=== PATIENT | female | born 1970 | race Caucasian/White ===

== ENCOUNTER → 2017-11-19 09:05 | Outpatient (POV) | payer BC, SELFPAY | PROVIDERS: Visit Provider Nurse Practitioner Acute Care | DX: Z00.00 Encounter for general adult medical examination without abnormal findings (principal) ==

== ENCOUNTER 2018-08-10 12:30 | Observation (INO) ==
--- NOTE | 2018-08-10 12:50 | Emergency Department Note ---
ED Disposition Clinical Impression: Esophageal dysphagia, Schatzki's ring of distal esophagus, Esophagitis, Hypernatremia, Dehydration Disposition: Still a Patient Condition on Discharge: Fair Referrals: Lucia Cisneros MD [Primary Care Provider] - - Critical Care Critical Care Time: No Attestation: On , the high probability of a clinically significant, sudden or life threatening deterioration of the following system(s) required my full and direct attention, intervention and personal management. The time I documented below is in addition to time spent performing reported procedures but includes the following listed in this critical care notation. Medical Decision Making - Medical Records Medical records reviewed: Yes: I reviewed the patient's medical records. - [place] Inquiry Pt receiving controlled substance: No [place] was queried for this patient: No Vital Signs: 08/10/18 12:39 08/10/18 14:31 Temperature 98.1 F Temperature Source Oral Pulse Rate [Right Brachial] 66 68 Respiratory Rate 17 18 Blood Pressure [Right Arm] 149/79 H 114/75 Blood Pressure Mean [Right Arm] 102 88 Blood Pressure Source [Right Arm] Automatic Cuff Automatic Cuff Blood Pressure Position [Right Arm] Sitting Sitting 02 Sat by Pulse Oximetry 97 98 Oxygen Delivery Method Room Air Room Air - Lab Data Lab Results 08/10/18 13:25: WBC 9.9, RBC 5.20, Hgb 15.8, Hct 47.3 H, MCV 90.9, MCH 30.3, MCHC 33.4, RDW 13.5, Plt Count 279, MPV 8.5, Neut % (Auto) 83.8 H, Lymph % (Auto) 11.2, [place] % (Auto) 4.3, Eos % (Auto) 0.2, Baso % (Auto) 0.5, Neut # (Auto) 8.3 H, Lymph # (Auto) 1.1, [place] # (Auto) 0.4, Eos # (Auto) 0.0, Baso # (Auto) 0.1 08/10/18 13:25: Sodium 148 H, Potassium 3.8, Chloride 110 H, Carbon Dioxide 28, Anion Gap 13.8, BUN 17, Creatinine 0.95, Estimated Creat Clear 83, Estimated GFR 63, Est GFR ( Amer) 76, Glucose 115 H, Calcium 9.6 Result diagrams: 08/10/18 13:25 08/10/18 13:25 Orders (Tests/Meds): ED MEDICATIONS Generic Name Dose Route Start Last Admin Trade Name [place] PRN Reason Stop Dose Admin Metoclopramide HCl 5 mg 08/10/18 16:30 08/10/18 14:43 Reglan 10mg/2ml Vial IVP 09/09/18 16:29 5 mg ACHS CLEMENTINA Administration ORDERS Category Date Time Status Consult to General Surgery [CONS] Stat Cons 08/10/18 15:56 Ordered Neck soft tissue XR [XR soft tissue neck] Stat Exams 08/10/18 12:46 Taken XR chest 2V Stat Exams 08/10/18 12:46 Taken - Radiology Data #1 Image(s): Chest Image Reviewed: Yes I reviewed the patient's radiology image Preliminary Findings: Normal/NAD Neck soft tissue x-ray no acute findings.. Medical Decision Narrative: The patient remained stable blood work and chest x-ray were within normal limits. I spoke with Dr. Garcia who advised the patient be admitted to a primary care physician who will see her in consultation. I discussed with Dr. Cisneros recommended the patient received Reglan. Patient received Reglan IV with no improvement. Patient will be admitted with a consultation to Dr. Garcia. General Adult HPI - General Stated complaint: vomiting Time Seen by Provider: 08/10/18 12:45 Mode of Arrival: Ambulatory Limitations: No Limitations Description of Symptoms (Recalled from ER Triage Doc. by RN): food bolus (steak) stuck in esophagus since approx 0200 this am. pt has tried taking antacids as well as drinking fluids to "push it down" without success. noticed that she is unable to pass any fluids with immediate gi rejection - History of Present Illness HPI narrative: 47 years old white female who was sent from the primary care office due to ongoing dysphagia since yesterday at 2 AM. The patient works the shift engineer and she was eating a piece of steak at 2 AM, she felt was stuck at the lower part of her sternum, she vomited the piece of steak but she continued to be unable to eat, drink or swallow her own saliva since then. She denies having shortness of air, wheezing, abdominal pain, hematemesis, coffee-ground emesis, or bleeding per rectum. The patient underwent upper endoscopy by Dr. Velasquez on January 24, 2017 that was positive for she will obscuring and nonerosive esophagitis. Was recommended to use Metamucil but she refuses to take medications. Onset (ago): hour(s) (11 hours.) Associated symptoms: nausea/vomiting Treatments prior to arrival: none - Related Data Home Medications Medication Instructions Recorded Confirmed No Known Home Medications 09/19/17 12/20/17 Allergies Allergy/AdvReac Type Severity Reaction Status Date / Time No Known Allergies Allergy Verified 12/20/17 10:07 [facility] History - Hepatitis A Screen Drug use history?: No High risk sexual behaviors?: No History of sexually transmitted infection?: No Currently employed?: No Childcare worker?: No Do you have indoor plumbing?: Yes Do you have electricity?: Yes Attestation statement:: This patient has been screened for Hepatitis A risk factors. I have reviewed the patient's past medical history: Yes Medical History: Denies:: Diabetes Mellitus Type 1, Diabetes Mellitus Type 2, Internal Pacemaker, Lung Disease, Seizures Other Surgeries: Yes: Tubal Ligation, Other. No: Pacemaker - Social History Educational Level: Completed High School Smoking Status: Never smoker Alcohol Intake: never Alcohol Intake Frequency:: other Substance Use Type: denies use Occupational Status: employed - Psychiatric History Expresses thoughts of harming self/others: None Suicide Plan Description: No Plan Family Hx:: Unable to obtain ROS Obtained: Yes All systems reviewed & no additional complaints Physical Exam - General General appearance: alert, in no apparent distress - Head Head exam: atraumatic, normocephalic, normal inspection - Eye Eye exam: Present: normal appearance, PERRL, EOMI. Absent: scleral icterus, nystagmus - ENT ENT exam: Present: normal exam, normal oropharynx, mucous membranes moist, TM's normal bilaterally, normal external ear exam - Neck Neck exam: Present: normal inspection, full ROM, trachea midline. Absent: tenderness, meningismus, lymphadenopathy - Chest Chest inspection: Present: normal inspection, symmetric chest wall rise. Absent: tenderness - Respiratory Respiratory exam: Present: normal lung sounds bilaterally. Absent: respiratory distress, wheezes - Cardiovascular Cardiovascular exam: Present: regular rate, normal rhythm, normal heart sounds. Absent: JVD - Abdominal Exam Abdominal exam: Present: soft, normal bowel sounds. Absent: distention, tenderness, guarding, rebound, rigidity - Extremities Exam Extremities exam: Present: normal inspection, full ROM, normal capillary refill. Absent: tenderness, pedal edema, joint swelling, calf tenderness - Back Exam Back exam: Present: normal inspection. Absent: tenderness, CVA tenderness (R), CVA tenderness (L) - Neurological Exam Neurological exam: Present: alert, oriented X3, CN II-XII intact, motor sensory deficit, reflexes normal - Psychiatric Psychiatric exam: Present: normal affect, normal mood - Skin Skin exam: Present: warm, dry, intact, normal color - Lymphatic Lymphatic Findings: no adenopathy
[2018-08-10 13:45] LABS: Basophils # 0.1 K/mm3 (0-0.2); Basophils % 0.5 % (0.1-2.0); Eosinophils % 0.2 % (0.1-12.0); Hematocrit 47.3 % (37.0-47.0); Hemoglobin 15.8 g/dL (12.2-16.2); Lymphocytes # 1.1 K/mm3 (0.7-4.5); Lymphocytes % 11.2 % (10-50); Mean Corpuscular HGB Conc 33.4 g/dL (31.8-35.4); Mean Corpuscular Hemoglobin 30.3 pg (27.0-31.2); Mean Corpuscular Volume 90.9 fl (81-99); Mean Platelet Volume 8.5 fl (7.4-10.4); Monocytes # 0.4 K/mm3 (0.1-1.0); Monocytes % 4.3 % (1.7-9.3); Neutrophils # 8.3 K/mm3 (1.8-7.8); Neutrophils % 83.8 % (37.0-80.0); Platelet Count 279 K/mm3 (142-424); Red Cell Distribution Width 13.5 % (11.5-17.5); White Blood Count 9.9 K/mm3 (4.8-10.8)
[2018-08-10 13:48] LABS: Anion Gap 13.8 mEq/L (5-15); Calcium 9.6 mg/dL (8.5-10.1); Potassium 3.8 mmoL/L (3.5-5.1)
--- NOTE | 2018-08-10 16:17 | Progress Note ---
Internal Medicine - PN: Subj *Date: 08/10/18 *Time: 16:12 Interval history: See H&P from [facility]. The patient was seen today in the office of [facility]. Hx of Schatzki's ring with dilatation by Dr. Velasquez December 2017. Now with apparent obstruction. Cannot swallow water without regurgitating. Was sent to ER for evaluation and treatment. Did not respond to IV Metoclopramide. Dr. Garcia has been contacted and plans endoscopy. Exam Vital signs and Labs for Last 24 Hours: Temp Pulse Resp BP Pulse Ox 98.1 F 68 18 114/75 98 08/10/18 12:39 08/10/18 14:31 08/10/18 14:31 08/10/18 14:31 08/10/18 14:31 Laboratory Results - last 24 hr 08/10/18 13:25: WBC 9.9, RBC 5.20, Hgb 15.8, Hct 47.3 H, MCV 90.9, MCH 30.3, MCHC 33.4, RDW 13.5, Plt Count 279, MPV 8.5, Neut % (Auto) 83.8 H, Lymph % (Auto) 11.2, [place] % (Auto) 4.3, Eos % (Auto) 0.2, Baso % (Auto) 0.5, Neut # (Auto) 8.3 H, Lymph # (Auto) 1.1, [place] # (Auto) 0.4, Eos # (Auto) 0.0, Baso # (Auto) 0.1 08/10/18 13:25: Sodium 148 H, Potassium 3.8, Chloride 110 H, Carbon Dioxide 28, Anion Gap 13.8, BUN 17, Creatinine 0.95, Estimated Creat Clear 83, Estimated GFR 63, Est GFR ( Amer) 76, Glucose 115 H, Calcium 9.6 I & O for Last 24 hours: Intake & Output 08/08/18 08/09/18 08/10/18 08/11/18 11:59 11:59 11:59 12:59 Weight 157 lb 8 oz Assessment and Plan (1) Dehydration Current visit: Yes Status: Acute Category: Medical Code(s): E86.0 - Dehydration (2) Esophageal dysphagia Current visit: Yes Status: Acute Category: Medical Code(s): R13.10 - Dysphagia, unspecified (3) Esophagitis Current visit: Yes Status: Acute Category: Medical Code(s): K20.9 - Esophagitis, unspecified (4) Hypernatremia Current visit: Yes Status: Acute Category: Medical Code(s): E87.0 - Hyperosmolality and hypernatremia (5) Schatzki's ring of distal esophagus Current visit: Yes Status: Acute Category: Medical Code(s): K22.2 - Esophageal obstruction - Assessment and plan all Dx Assessment and Plan for all problems:: See orders
--- NOTE | 2018-08-10 18:30 | History & Physical Report ---
HPI HPI: Ms. Sol is a 47-year-old female that presents with dysphasia. Reports eating "steak" at work at approximately 2 AM this morning. Food did not digest properly. Secondary onset of emesis. Increased secretions and saliva. Pain radiating to mid back. Previous EGD with dilation for Schatzki's ring. Findings consistent with food impaction distal esophagus. No other complaints. No hematemesis. No fever or chills. [facility] History I have reviewed the patient's past medical history: Yes Medical History: Denies:: Diabetes Mellitus Type 1, Diabetes Mellitus Type 2, Internal Pacemaker, Lung Disease, Seizures *Have you ever received a pneumonia vaccine?: No *Have you received a flu vaccine this season?: No Other Surgeries: Yes: Tubal Ligation, Other. No: Pacemaker - *Social History Educational Level: Completed High School Smoking Status: Never smoker Alcohol Intake: never Alcohol Intake Frequency:: other Substance Use Type: denies use *Occupational Status:: employed *Travel in the last 8 weeks: None - Psychiatric History Expresses thoughts of harming self/others: None Suicide Plan Description: No Plan Family Hx:: Unable to obtain Review of Systems - Review of Systems Review of systems:: pertinent systems reviewed and negative unless documented below - *Gastrointestinal Reports heartburn Meds Home Medications Medication Instructions Recorded Confirmed Type No Known Home Medications 09/19/17 08/10/18 History Allergies Allergy/AdvReac Type Severity Reaction Status Date / Time No Known Allergies Allergy Verified 12/20/17 10:07 Exam Vital signs and Labs for Last 24 Hours: Temp Pulse Resp BP Pulse Ox 98.0 F 74 12 93/48 L 100 08/10/18 18:15 08/10/18 18:15 08/10/18 18:15 08/10/18 18:15 08/10/18 18:15 Laboratory Results - last 24 hr 08/10/18 13:25: WBC 9.9, RBC 5.20, Hgb 15.8, Hct 47.3 H, MCV 90.9, MCH 30.3, MCHC 33.4, RDW 13.5, Plt Count 279, MPV 8.5, Neut % (Auto) 83.8 H, Lymph % (Auto) 11.2, [place] % (Auto) 4.3, Eos % (Auto) 0.2, Baso % (Auto) 0.5, Neut # (Auto) 8.3 H, Lymph # (Auto) 1.1, [place] # (Auto) 0.4, Eos # (Auto) 0.0, Baso # (Auto) 0.1 08/10/18 13:25: Sodium 148 H, Potassium 3.8, Chloride 110 H, Carbon Dioxide 28, Anion Gap 13.8, BUN 17, Creatinine 0.95, Estimated Creat Clear 83, Estimated GFR 63, Est GFR ( Amer) 76, Glucose 115 H, Calcium 9.6 I & O for Last 24 hours: Intake & Output 08/08/18 08/09/18 08/10/18 08/11/18 11:59 11:59 11:59 12:59 Weight 70.789 kg - Constitutional no acute distress - *Routine Respiratory Exam Present: CTA bilaterally - *Routine Cardiovascular Exam Present: RRR - *Routine Abdominal Exam Present: soft. Absent: tenderness, distended Results - Results Lab Results Last 24 Hours:: Laboratory Results - last 24 hr 08/10/18 13:25: WBC 9.9, RBC 5.20, Hgb 15.8, Hct 47.3 H, MCV 90.9, MCH 30.3, MCHC 33.4, RDW 13.5, Plt Count 279, MPV 8.5, Neut % (Auto) 83.8 H, Lymph % (Auto) 11.2, [place] % (Auto) 4.3, Eos % (Auto) 0.2, Baso % (Auto) 0.5, Neut # (Auto) 8.3 H, Lymph # (Auto) 1.1, [place] # (Auto) 0.4, Eos # (Auto) 0.0, Baso # (Auto) 0.1 08/10/18 13:25: Sodium 148 H, Potassium 3.8, Chloride 110 H, Carbon Dioxide 28, Anion Gap 13.8, BUN 17, Creatinine 0.95, Estimated Creat Clear 83, Estimated GFR 63, Est GFR ( Amer) 76, Glucose 115 H, Calcium 9.6 Assessment and Plan (1) Dehydration Current visit: Yes Status: Acute Category: Medical Code(s): E86.0 - Dehydration (2) Esophageal dysphagia Current visit: Yes Status: Acute Category: Medical Code(s): R13.10 - Dysphagia, unspecified (3) Esophagitis Current visit: Yes Status: Acute Category: Medical Code(s): K20.9 - Eso phagitis, unspecified (4) Hypernatremia Current visit: Yes Status: Acute Category: Medical Code(s): E87.0 - Hyperosmolality and hypernatremia (5) Schatzki's ring of distal esophagus Current visit: Yes Status: Acute Category: Medical Code(s): K22.2 - Esophageal obstruction - Assessment and plan all Dx Assessment and Plan for all problems:: Food impaction. Distal esophagus. Proceed with EGD and food impaction retrieval. All risks and benefits discussed with Ms. Sol. Agrees to proceed.
--- NOTE | 2018-08-10 18:34 | Operative Note ---
Date of procedure: 08/10/18 Pre-op Diagnosis:: Dysphasia. Distal esophagus food impaction. Post-op Diagnosis:: Same. Procedure performed:: EGD. Surgeon:: Irwin Garcia MD INTERACTIVE MEDIA PROJECT MANAGER:: Jordy Zapata Anesthesia: MAC Estimated blood loss (mL): 0 Operative findings:: Large food bolus distal esophagus. Pushed through to stomach. Schatzki ring visible. Operative note:: Patient was properly identified and consent was obtained. Patient was brought to the endoscopy suite. Placed in the left lateral decubitus position. Supplemental oxygen administered. Propofol sedation administered through indwelling intravenous access. Olympus video endoscope was advanced into the oropharynx. Passed without difficulty into the upper esophagus. No mucosal abnormalities in the mid to upper esophagus. Large food bolus was present in the distal esophagus. Clear fluid column was above the food bolus. This was evacuated. Food bolus then entered into the stomach without resistance. Food bolus did not require retrieval. Schatzki ring was visible. Gastric mucosa appeared healthy except for small gastric polyps. No other abnormalities. Patient tolerated the procedure well. Patient transferred to general medical floor after procedure without difficulty. Condition: stable Disposition: floor Complications:: None.
[2018-08-11 06:44] LABS: Basophils % 0.3 % (0.1-2.0); Eosinophils # 0.1 K/mm3 (0.0-0.4); Eosinophils % 1.2 % (0.1-12.0); Hematocrit 39.1 % (37.0-47.0); Lymphocytes # 1.8 K/mm3 (0.7-4.5); Lymphocytes % 24.3 % (10-50); Mean Corpuscular HGB Conc 32.7 g/dL (31.8-35.4); Mean Corpuscular Hemoglobin 29.7 pg (27.0-31.2); Mean Platelet Volume 8.8 fl (7.4-10.4); Monocytes # 0.5 K/mm3 (0.1-1.0); Monocytes % 6.2 % (1.7-9.3); Neutrophils # 4.9 K/mm3 (1.8-7.8); Platelet Count 214 K/mm3 (142-424); Red Blood Count 4.29 M/mm3 (4.20-5.40); Red Cell Distribution Width 13.6 % (11.5-17.5); White Blood Count 7.2 K/mm3 (4.8-10.8)
[2018-08-11 06:50] LABS: Hemoglobin 12.8 g/dL (12.2-16.2)
[2018-08-11 06:51] LABS: Anion Gap 12.4 mEq/L (5-15); Potassium 3.4 mmoL/L (3.5-5.1)
--- NOTE | 2018-08-11 09:13 | Progress Note ---
Internal Medicine - PN: Subj *Date: 08/11/18 *Time: 09:10 Interval history: The operative note is reviewed. The patient is stable this morning. She is taking clear liquids. I have not heard directly from Dr. Garcia, but I would presume that she would be eligible for discharge this morning. Exam Vital signs and Labs for Last 24 Hours: Temp Pulse Resp BP Pulse Ox 97.8 F 60 16 100/53 L 97 08/11/18 04:00 08/11/18 04:00 08/11/18 04:00 08/11/18 04:00 08/11/18 04:00 Laboratory Results - last 24 hr 08/10/18 13:25: WBC 9.9, RBC 5.20, Hgb 15.8, Hct 47.3 H, MCV 90.9, MCH 30.3, MCHC 33.4, RDW 13.5, Plt Count 279, MPV 8.5, Neut % (Auto) 83.8 H, Lymph % (Auto) 11.2, [place] % (Auto) 4.3, Eos % (Auto) 0.2, Baso % (Auto) 0.5, Neut # (Auto) 8.3 H, Lymph # (Auto) 1.1, [place] # (Auto) 0.4, Eos # (Auto) 0.0, Baso # (Auto) 0.1 08/10/18 13:25: Sodium 148 H, Potassium 3.8, Chloride 110 H, Carbon Dioxide 28, Anion Gap 13.8, BUN 17, Creatinine 0.95, Estimated Creat Clear 83, Estimated GFR 63, Est GFR ( Amer) 76, Glucose 115 H, Calcium 9.6 08/11/18 06:20: WBC 7.2 D, RBC 4.29, Hgb 12.8 D, Hct 39.1, MCV 91.0, MCH 29.7, MCHC 32.7, RDW 13.6, Plt Count 214, MPV 8.8, Neut % (Auto) 68.0, Lymph % (Auto) 24.3, [place] % (Auto) 6.2, Eos % (Auto) 1.2, Baso % (Auto) 0.3, Neut # (Auto) 4.9, Lymph # (Auto) 1.8, [place] # (Auto) 0.5, Eos # (Auto) 0.1, Baso # (Auto) 0.0 08/11/18 06:20: Sodium 146 H, Potassium 3.4 L, Chloride 112 H, Carbon Dioxide 25, Anion Gap 12.4, BUN 13, Creatinine 0.73 D, Estimated Creat Clear 106, Estimated GFR 85, Est GFR ( Amer) 103 D, Glucose 117 H, Calcium 8.0 L D I & O for Last 24 hours: Intake & Output 08/08/18 08/09/18 08/10/18 08/11/18 11:59 11:59 11:59 12:59 Intake Total 1125 / 1125 Balance 1125 / 1125 Weight 156 lb 1 oz - Constitutional no acute distress - *Routine Respiratory Exam Present: CTA bilaterally - *Routine Cardiovascular Exam Present: RRR - *Routine Abdominal Exam Present: soft. Absent: tenderness - *Routine Neurological Exam Present: alert, oriented X3 Assessment and Plan (1) Esophageal obstruction due to food impaction Current visit: Yes Status: Acute Category: Medical Code(s): K22.2 - Esophageal obstruction; T18.128A - Food in esophagus causing other injury, initial encounter (2) Dehydration Current visit: Yes Status: Acute Category: Medical Code(s): E86.0 - Dehydration (3) Esophageal dysphagia Current visit: Yes Status: Acute Category: Medical Code(s): R13.10 - Dysphagia, unspecified (4) Esophagitis Current visit: Yes Status: Acute Category: Medical Code(s): K20.9 - Esophagitis, unspecified (5) Hypernatremia Current visit: Yes Status: Acute Category: Medical Code(s): E87.0 - Hyperosmolality and hypernatremia (6) Schatzki's ring of distal esophagus Current visit: Yes Status: Acute Category: Medical Code(s): K22.2 - Esophageal obstruction - Assessment and plan all Dx Assessment and Plan for all problems:: She will be discharged this morning if Dr. Garcia approves of this. She will need follow-up for dilatation of the Schatzki ring
--- NOTE | 2018-08-11 10:48 | Progress Note ---
Subjective Patient reports: no new complaints, feels better, tolerating liquids well Exam Vital signs and Labs for Last 24 Hours: Temp Pulse Resp BP Pulse Ox 98.2 F 68 16 86/50 L 97 08/11/18 08:00 08/11/18 08:00 08/11/18 08:00 08/11/18 08:00 08/11/18 08:00 Laboratory Results - last 24 hr 08/10/18 13:25: WBC 9.9, RBC 5.20, Hgb 15.8, Hct 47.3 H, MCV 90.9, MCH 30.3, MCHC 33.4, RDW 13.5, Plt Count 279, MPV 8.5, Neut % (Auto) 83.8 H, Lymph % (Auto) 11.2, [place] % (Auto) 4.3, Eos % (Auto) 0.2, Baso % (Auto) 0.5, Neut # (Auto) 8.3 H, Lymph # (Auto) 1.1, [place] # (Auto) 0.4, Eos # (Auto) 0.0, Baso # (Auto) 0.1 08/10/18 13:25: Sodium 148 H, Potassium 3.8, Chloride 110 H, Carbon Dioxide 28, Anion Gap 13.8, BUN 17, Creatinine 0.95, Estimated Creat Clear 83, Estimated GFR 63, Est GFR ( Amer) 76, Glucose 115 H, Calcium 9.6 08/11/18 06:20: WBC 7.2 D, RBC 4.29, Hgb 12.8 D, Hct 39.1, MCV 91.0, MCH 29.7, MCHC 32.7, RDW 13.6, Plt Count 214, MPV 8.8, Neut % (Auto) 68.0, Lymph % (Auto) 24.3, [place] % (Auto) 6.2, Eos % (Auto) 1.2, Baso % (Auto) 0.3, Neut # (Auto) 4.9, Lymph # (Auto) 1.8, [place] # (Auto) 0.5, Eos # (Auto) 0.1, Baso # (Auto) 0.0 08/11/18 06:20: Sodium 146 H, Potassium 3.4 L, Chloride 112 H, Carbon Dioxide 25, Anion Gap 12.4, BUN 13, Creatinine 0.73 D, Estimated Creat Clear 106, Estimated GFR 85, Est GFR ( Amer) 103 D, Glucose 117 H, Calcium 8.0 L D I & O for Last 24 hours: Intake & Output 08/08/18 08/09/18 08/10/18 08/11/18 11:59 11:59 11:59 12:59 Intake Total 1125 / 1125 Balance 1125 / 1125 Weight 70.789 kg - *Routine Abdominal Exam Present: soft, normoactive bowel sounds. Absent: tenderness Progress Note: A&P (1) Esophageal obstruction due to food impaction Status: Acute Current Visit: Yes (2) Dehydration Status: Acute Current Visit: Yes (3) Esophageal dysphagia Status: Acute Current Visit: Yes (4) Esophagitis Status: Acute Current Visit: Yes (5) Hypernatremia Status: Acute Current Visit: Yes (6) Schatzki's ring of distal esophagus Status: Acute Current Visit: Yes Assessment and Plan for All Diagnoses:: Ms. Sol is a 47-year-old female status post EGD for distal esophageal food impaction. EGD without complication. Endoscope mechanically push food into the stomach. Schatzki ring was present however there was no significant stricture. Doing well this morning. Dietary instructions discussed. Discharge planning for today. Patient will need follow-up for EGD in 6-8 weeks; it is not clear whether or not she will need additional dilation based on appearance from EGD during this hospital admission.
--- NOTE | 2018-08-11 13:56 | Pharmacy Consult Notes ---
[facility] Pharmacy VTE Monitoring - Patient Demographics Admission date: 08/11/18 Report Date: 08/11/18 Time: 13:55 Allergies/Adverse Reactions: Patient Allergies No Known Allergies Allergy (Verified 12/20/17 10:07) Height: 1.47 m Weight: 70.789 kg Patient Problems: Current Active Problems Esophageal dysphagia (Acute) Schatzki's ring of distal esophagus (Acute) Esophagitis (Acute) Hypernatremia (Acute) Dehydration (Acute) Esophageal obstruction due to food impaction (Acute) - VTE Risk Labs: VTE Related Lab Results Hgb 12.8 g/dL (12.2-16.2) D 08/11/18 06:20 Hct 39.1 % (37.0-47.0) 08/11/18 06:20 Plt Count 214 K/mm3 (142-424) 08/11/18 06:20 BUN 13 mg/dL (7-18) 08/11/18 06:20 Creatinine 0.73 mg/dL (0.55-1.02) D 08/11/18 06:20 Estimated Creat Clear 106 mL/min (50-200) 08/11/18 06:20 VTE Score: 1 VTE Risk Level: Very Low Risk - Prophylaxis Types of VTE Prophylaxis: TEDS Knee High (SHWETHA HOSE ORDER PLACED.)
--- NOTE | 2018-08-12 21:49 | Discharge Summary ---
General - General Admission date:: 08/10/18 Discharge date: 08/11/18 HPI HPI: Ms. Sol is a 47-year-old female who presented to the office [facility] and was unable to swallow without regurgitation. She had a history of Schatzki's ring with dilatation by Dr. Velasquez in December 2017. It was felt she had an apparent obstruction. She was sent to ER for evaluation and treatment. She did not respond to IV Metoclopramide. Dr. Garcia was contacted and planned an endoscopy and the patient was admitted. Hospital Course Hospital Course: Dr. Garcia and saw the patient and felt she had a food impaction in the distal esophagus. He wanted to proceed with an EGD and food impaction retrieval. He found a large food bolus in the distal esophagus and pushed it through to the stomach. A Schatzki's Ring was visible. The patient tolerated the procedure well and was able to take clear liquids. Dr. Cisneros felt she was stable to be discharged. Dr. Garcia wanted her to have a follow-up EGD in 6-8 weeks as it was not clear whether she would need additional dilatation based on the appearance from her EGD. Objective Vital signs: Temp Pulse Resp BP Pulse Ox 97.9 F 60 18 102/52 L 97 08/11/18 12:00 08/11/18 12:00 08/11/18 12:00 08/11/18 12:00 08/11/18 12:00 Narrative: - Constitutional no acute distress - *Routine Respiratory Exam Present: CTA bilaterally - *Routine Cardiovascular Exam Present: RRR - *Routine Abdominal Exam Present: soft. Absent: tenderness - *Routine Neurological Exam Present: alert, oriented X3 DS: Diagnosis - Discharge Diagnosis (1) Esophageal obstruction due to food impaction Status: Acute (2) Dehydration Status: Acute (3) Esophageal dysphagia Status: Acute (4) Esophagitis Status: Acute (5) Hypernatremia Status: Acute (6) Schatzki's ring of distal esophagus Status: Acute Discharge Plan - Patient Discharge Instructions ACTIVITY: Continue current activity DIET: advance to your usual diet Patient Instructions: Upper GI Endoscopy, DI for Hypernatremia - Follow up Plan Follow up with: Lucia Cisneros MD [Primary Care Provider] - 08/19/18 Disposition: Home, Self-Prison Medications: Home Medications Medication Instructions Recorded Confirmed Type No Known Home Medications 09/19/17 08/10/18 History Esomeprazole Magnesium [Nexium] 40 mg PO DAILY #30 capsule. 08/11/18 Rx Metoclopramide HCl [Reglan 5mg 2.5 mg PO AC PRN 30 Days #30 tab 08/11/18 Rx Tablet] Prescriptions/Medication Reconciliation: New Esomeprazole Magnesium [Nexium] 40 mg PO DAILY #30 capsule. Metoclopramide HCl [Reglan 5mg Tablet] 2.5 mg PO AC PRN 30 Days #30 tab PRN Reason: Acid Reflux Continue No Known Home Medications
== END 2018-08-11 16:25 | disposition home or self-care (01) ==
LOC: 2ND 12:30 → ER 12:30 → 2ND 17:10
PROVIDERS: ADMIT Family Medicine; ATTEND Family Medicine
CPT/HCPCS: 36415; 70360; 71020; 71046; 80048; 85025; 96365; 99284; G0378

== ENCOUNTER 2020-08-10 09:53 | Emergency (ER) | payer BC, SELFPAY ==
[2020-08-10 10:00] VITALS: BP 135/90; PULSE 90; RESP 14; TEMP 36.8; O2SAT 100; BMI 34.6
--- NOTE | 2020-08-10 10:30 | HMH.EDUTC ---
[facility] [place] Disposition Clinical Impression: Exposure to COVID-19 virus Sinusitis Qualifiers: Sinusitis location: unspecified location Chronicity: acute Recurrence: non-recurrent Qualified Code(s): J01.90 - Acute sinusitis, unspecified Disposition: Home, Self-Care Condition on Discharge: Good Instructions: Sinusitis, DI for Sinusitis, Preventing the Spread of Coronavirus Discharge Instructions Additional Instructions: Drink plenty of fluids. Take tylenol or ibuprofen for pain or fever. Take the medications as directed. Follow up with your regular doctor. GO TO THE ER FOR ANY WORSENING SYMPTOMS Prescriptions: predniSONE [Prednisone 20mg Tab] 20 mg PO BID 4 Days #8 tab Transmission Status: Received by [id number] Benzonatate [Tessalon Perle 100mg Cap] 100 mg PO TIDP PRN #30 cap PRN Reason: Cough Transmission Status: Received by [id number] Azithromycin [Z-Tre 250mg Tab*] 250 mg PO UD DOSE PK #6 tab Transmission Status: Received by [id number] Referrals: Santos Santillan MD [Primary Care Provider] - Forms: Work/School Release Time of Disposition: 10:52 Medical Decision Making - Medical Records Medical records reviewed: No: I reviewed the patient's medical records. - Valdez Inquiry Pt receiving controlled substance: No Vital Signs: 08/10/20 10:00 08/10/20 10:58 Temperature 98.3 F 98.3 F Temperature Source Oral Pulse Rate 90 Pulse Rate [Right Brachial] 90 Respiratory Rate 14 14 Blood Pressure 135/90 Blood Pressure [Right Arm] 135/90 Blood Pressure Mean [Right Arm] 105 Blood Pressure Source [Right Arm] Automatic Cuff Blood Pressure Position [Right Arm] Sitting 02 Sat by Pulse Oximetry 100 Oxygen Delivery Method Room Air Orders (Tests/Meds): ED MEDICATIONS Discontinued Medications Generic Name Dose Route Start Last Admin Trade Name Freq PRN Reason Stop Dose Admin Ceftriaxone Sodium 1 gm 08/10/20 10:39 08/10/20 10:45 Ceftriaxone 1gm Vial IM 08/10/20 10:40 1 gm ONCE ONE Administration Protocol Lidocaine HCl 0 ml 08/10/20 10:39 08/10/20 10:45 Lidocaine 1% 5ml Pf Vial IM 08/10/20 10:40 2.1 ml ONCE ONE Administration [facility] [place] HPI - General Stated complaint: wants covid test,headache,sneezing Time Seen by Provider: 08/10/20 10:30 - History of Present Illness Provider Complaint: She states that for the past 2 days she has had sinus congestion, cough, and head ache. She works at [employer], so she wants to be tested for covid. - Related Data Previous Rx's Medication Instructions Recorded Esomeprazole Magnesium [Nexium] 40 mg PO DAILY #30 capsule. 08/11/18 Azithromycin [Z-Tre 250mg Tab*] 250 mg PO UD DOSE PK #6 tab 08/10/20 Benzonatate [Tessalon Perle 100mg 100 mg PO TIDP PRN #30 cap 08/10/20 Cap] predniSONE [Prednisone 20mg 20 mg PO BID 4 Days #8 tab 08/10/20 Tab] Allergies Allergy/AdvReac Type Severity Reaction Status Date / Time No Known Allergies Allergy Verified 12/20/17 10:07 [facility] History - Hepatitis A Screen Attestation statement:: This patient has been screened for Hepatitis A risk factors. I have reviewed the patient's past medical history: Yes Medical History: Denies:: Cancer, Diabetes Mellitus Type 1, Diabetes Mellitus Type 2, Internal Pacemaker, Lung Disease, MRSA, Seizures Other Surgeries: Yes: Tubal Ligation, Other. No: Pacemaker Amputation: No - Social History Smoking Status: Never smoker Alcohol Intake: never Alcohol Intake Frequency:: other Substance Use Type: denies use Occupational Status: employed Housing: house Household Members: significant other Family Hx:: Unable to obtain ROS Obtained: Yes All systems reviewed & no additional complaints - Constitutional Constitutional: Reports system reviewed and no additional complaints, except as docu - Eyes Eyes: Reports system reviewed and no additional complaints, except as docu - ENT
[2020-08-10 10:58] VITALS: BP 135/90; PULSE 90; RESP 14; TEMP 36.8; O2SAT 100
== END 2020-08-10 11:00 | disposition home or self-care (01) ==
PROVIDERS: Emergency Provider Nurse Practitioner Family; PCP Family Medicine
DX: Z20.822 Contact with and (suspected) exposure to COVID-19 (principal); J01.90 Acute sinusitis, unspecified
CPT/HCPCS: 96372; 99202; G0463; U0003

== ENCOUNTER 2020-12-20 10:57 | Emergency (ER) | payer BC, SELFPAY ==
[2020-12-20 11:55] VITALS: BP 135/87; PULSE 68; RESP 19; TEMP 36.6; O2SAT 99; BMI 27.3
[2020-12-20 12:38] VITALS: BP 131/64; PULSE 61; RESP 18; O2SAT 100; BMI 34.6
--- NOTE | 2020-12-20 12:39 | HMH.EDUTC ---
[facility] [place] Disposition Clinical Impression: Lip laceration Qualifiers: Encounter type: initial encounter Qualified Code(s): S01.511A - Laceration without foreign body of lip, initial encounter Disposition: Home, Self-Care Condition on Discharge: Good Referrals: Provider,Referral, MD [Primary Care Provider] - Time of Disposition: 12:39 Medical Decision Making - Valdez Inquiry Pt receiving controlled substance: No Valdez was queried for this patient: No Vital Signs: 12/20/20 11:55 Temperature 97.8 F Temperature Source Oral Pulse Rate [Right Brachial] 68 Respiratory Rate 19 Blood Pressure [Right Arm] 135/87 Blood Pressure Mean [Right Arm] 103 Blood Pressure Source [Right Arm] Automatic Cuff Blood Pressure Position [Right Arm] Sitting 02 Sat by Pulse Oximetry 99 Oxygen Delivery Method Room Air Orders (Tests/Meds): ED MEDICATIONS Discontinued Medications Generic Name Dose Route Start Last Admin Trade Name Freq PRN Reason Stop Dose Admin Tetanus/Reduced Diphtheria/Acell Pertussis 0.5 ml 12/20/20 12:30 Tet/Diphth/Pert-Adult 0.5ml Syringe IM 12/20/20 12:31 .ONCE ONE Medical Decision Narrative: Spoke with ED Physician and discussed laceration on lip and patient to be sent to the ED for closure Patient agreed to transfer Patient report was given to Dalila Sykes RN and pt was moved to room 10 [facility] [place] HPI - General Stated complaint: bit by a dog on lip Time Seen by Provider: 12/20/20 12:39 Mode of Arrival: Ambulatory Source of Information: Patient Limitations: No Limitations Description of Symptoms (Recalled from Triage Doc. by RN): PATIENT STATES SHE WAS PLAYING WITH HER DOG TODAY AND IT CLAWED HER BOTTOM LIP. SHE IS NOT UP TO DATE ON TDAP HEENT Symptoms (Recalled from RN notes): Yes Resp Symptoms (Recalled from RN notes): No Skin Symptoms (Recalled from RN notes): No MS Symptoms (Recalled from RN notes): No Functional Status (Recalled from RN notes): WNL - History of Present Illness Provider Complaint: Patient state that she was playing with a dog when it was pawing at her and the dogs claw caught her in the lip causing laceration to her bottom lip States that she held pressure but it has continued to bleed States that she is not up todate on her PPD and needed to get one Denies any other injury - Related Data Previous Rx's Medication Instructions Recorded Esomeprazole Magnesium [Nexium] 40 mg PO DAILY #30 capsule. 08/11/18 Azithromycin [Z-Tre 250mg Tab*] 250 mg PO UD DOSE PK #6 tab 08/10/20 Benzonatate [Tessalon Perle 100mg 100 mg PO TIDP PRN #30 cap 08/10/20 Cap] predniSONE [Prednisone 20mg 20 mg PO BID 4 Days #8 tab 08/10/20 Tab] Allergies Allergy/AdvReac Type Severity Reaction Status Date / Time No Known Allergies Allergy Verified 12/20/17 10:07 - Worker's Comp Is this a Worker's Comp case?: No [facility] History - Hepatitis A Screen Drug use history?: No High risk sexual behaviors?: No History of sexually transmitted infection?: No Currently employed?: No Childcare worker?: No Do you have indoor plumbing?: Yes Do you have electricity?: Yes Attestation statement:: This patient has been screened for Hepatitis A risk factors. I have reviewed the patient's past medical history: Yes Medical History: Denies:: Cancer, Diabetes Mellitus Type 1, Diabetes Mellitus Type 2, Internal Pacemaker, Lung Disease, MRSA, Seizures Other Surgeries: Yes: Tubal Ligation, Other. No: Pacemaker Amputation: No - Social History Smoking Status: Never smoker Alcohol Intake: never Alcohol Intake Frequency:: other Substance Use Type: denies use Occupational Status: other Housing: house Household Members: significant other Family Hx:: Unable to obtain ROS Obtained: Yes All systems reviewed & no additional complaints, Yes Systems reviewed as appropriate & no additional complaints - Constitutional Constitutional: Reports system reviewed and no additional complaints, except as d
--- NOTE | 2020-12-20 13:08 | HMH.EDGENADL ---
ED Disposition Clinical Impression: Lip laceration Qualifiers: Encounter type: initial encounter Qualified Code(s): S01.511A - Laceration without foreign body of lip, initial encounter Disposition: Home, Self-Care Condition on Discharge: Good Instructions: DI for Laceration Repair, DI for Wound Infection Prescriptions: Amoxicillin/Potassium Clav [Augmentin 875-125 Tablet] 1 tab PO Q12H #10 tab Transmission Status: Pending to [id number] Referrals: Provider,Referral, MD [Primary Care Provider] - - Critical Care Critical Care Time: No Attestation: On 12/20/20, the high probability of a clinically significant, sudden or life threatening deterioration of the following system(s) required my full and direct attention, intervention and personal management. The time I documented below is in addition to time spent performing reported procedures but includes the following listed in this critical care notation. Medical Decision Making - Medical Records Medical records reviewed: Yes: I reviewed the patient's medical records. - Valdez Inquiry Pt receiving controlled substance: No Vital Signs: 12/20/20 11:55 12/20/20 12:38 Temperature 97.8 F Temperature Source Oral Pulse Rate [Left Radial] 61 Pulse Rate [Right Brachial] 68 Respiratory Rate 19 18 Blood Pressure [Right Arm] 135/87 131/64 Blood Pressure Mean [Right Arm] 103 86 Blood Pressure Source [Right Arm] Automatic Cuff Automatic Cuff Blood Pressure Position [Right Arm] Sitting Sitting 02 Sat by Pulse Oximetry 99 100 Oxygen Delivery Method Room Air Room Air Orders (Tests/Meds): ED MEDICATIONS Discontinued Medications Generic Name Dose Route Start Last Admin Trade Name Freq PRN Reason Stop Dose Admin Tetanus/Reduced Diphtheria/Acell Pertussis 0.5 ml 12/20/20 12:30 12/20/20 12:25 Tet/Diphth/Pert-Adult 0.5ml Syringe IM 12/20/20 12:31 0.5 ml .ONCE ONE Administration Medical Decision Narrative: Patient to the ED today for further evaluation of lower lip laceration. Patient is well-appearing on examination no acute distress stable vital signs. Laceration repaired with absorbable stitches, given follow-up and return precautions specifically discussed evidence of infection, patient is Tdap is up-to-date now, and was administered by urgent care center. Patient will be given Augmentin to take at home, education on this medication. General Adult HPI - General Chief complaint: Wound/Laceration Stated complaint: bit by a dog on lip Time Seen by Provider: 12/20/20 12:39 Mode of Arrival: Ambulatory Source of Information: Patient Limitations: No Limitations Description of Symptoms (Recalled from ER Triage Doc. by RN): PATIENT STATES SHE WAS PLAYING WITH HER DOG TODAY AND IT CLAWED HER BOTTOM LIP. SHE IS NOT UP TO DATE ON TDAP - History of Present Illness HPI narrative: Patient to the ED today after being called on the lower lip by her dog at home. States that this is a dog that she owns, states that he is up-to-date on his vaccinations, and this occurred approximately 1 hour prior to arrival, patient originally went to urgent care earlier today, and was transferred over to the main emergency department for laceration repair. Patient was not up-to-date on her tetanus vaccination, and it was done over an urgent care. - Related Data Previous Rx's Medication Instructions Recorded Esomeprazole Magnesium [Nexium] 40 mg PO DAILY #30 capsule. 08/11/18 Azithromycin [Z-Tre 250mg Tab*] 250 mg PO UD DOSE PK #6 tab 08/10/20 Benzonatate [Tessalon Perle 100mg 100 mg PO TIDP PRN #30 cap 08/10/20 Cap] predniSONE [Prednisone 20mg 20 mg PO BID 4 Days #8 tab 08/10/20 Tab] Amoxicillin/Potassium Clav 1 tab PO Q12H #10 tab 12/20/20 [Augmentin 875-125 Tablet] Allergies Allergy/AdvReac Type Severity Reaction Status Date / Time No Known Allergies Allergy Verified 12/20/17 10:07 [facility] History - Hepatitis A Screen
[2020-12-20 13:31] VITALS: BP 146/59; PULSE 63; RESP 20; TEMP 36.8; O2SAT 97
== END 2020-12-20 13:33 | disposition home or self-care (01) ==
LOC: UTC 10:58 → ER 12:36
PROVIDERS: Emergency Provider Student in an Organized Health Care Education/Training Program
DX: S01.511A Laceration without foreign body of lip, initial encounter (principal); W54.1XXA Struck by dog, initial encounter; Y92.019 Unspecified place in single-family (private) house as the place of occurrence of the external cause; Z23 Encounter for immunization
CPT/HCPCS: 12011; 90471; 90715; 99282

== ENCOUNTER → 2021-04-13 09:12 | Outpatient (CLI) | payer BC, SELFPAY | PROVIDERS: Visit Provider Nurse Practitioner | DX: Z20.822 Contact with and (suspected) exposure to COVID-19 (principal) | CPT/HCPCS: C9803; U0003; U0005 ==

== ENCOUNTER 2023-07-05 10:55 | Outpatient (CLI) | payer BC, SELFPAY ==
--- NOTE | 2023-07-05 11:00 | XR_ITS ---
FINAL REPORT CLINICAL HISTORY: cough,wheezing, pain/tightness in mid-back FINDINGS: There is no evidence of effusion or other pleural disease. The mediastinum has a normal appearance. The cardiac silhouette is unremarkable. IMPRESSION: Unremarkable chest exam. Reviewed, Interpreted and Dictated by Lucia Motta MD Transcribed by Lula Madera Authenticated and [facility]
== END 2023-07-05 23:59 ==
LOC: RAD 10:56
PROVIDERS: Visit Provider Student in an Organized Health Care Education/Training Program
DX: R05.8 Other specified cough (principal)
CPT/HCPCS: 71046

== ENCOUNTER 2024-05-29 12:31 | Outpatient (CLI) | payer BC, SELFPAY ==
[2024-05-29 18:33] LABS: Coronavirus 19, PCR Not Detected (NotDetected); Influenza A, PCR Not Detected (NotDetected); Influenza B, PCR Not Detected (NotDetected)
== END 2024-05-29 23:59 | disposition home or self-care (01) ==
LOC: LAB.DROPOF 06-02 12:32
PROVIDERS: PCP Student in an Organized Health Care Education/Training Program; Visit Provider Student in an Organized Health Care Education/Training Program
DX: R50.9 Fever, unspecified (principal); R05.9 Cough, unspecified
CPT/HCPCS: 87636

== ENCOUNTER 2024-06-01 09:10 | Emergency (ER) | payer BC, SELFPAY ==
[2024-06-01 09:11] VITALS: BP 123/81; PULSE 78; RESP 18; TEMP 36.8; O2SAT 97; BMI 36.1
--- NOTE | 2024-06-01 09:22 | PC.NURSE ---
DR MAURER AT BEDSIDE
--- NOTE | 2024-06-01 09:26 | XR_ITS ---
PROCEDURE INFORMATION: Exam: XR Chest Exam date and time: 06/01/2024 9:23 AM Age: 53 years old Clinical indication: Cough and shortness of breath; Additional info: Refractory cough TECHNIQUE: Imaging protocol: Radiologic exam of the chest. Views: 2 views. COMPARISON: CR XR CHEST 2V 07/05/2023 11:22 AM FINDINGS: Lungs: There is mild peribronchial soft tissue thickening. There are subtle infiltrates in the left mid lung and left lower lobe concerning for pneumonia. Pleural spaces: Unremarkable. No pleural effusion. No pneumothorax. Heart/Mediastinum: Unremarkable. No cardiomegaly. Bones/joints: Unremarkable. IMPRESSION: Peribronchial soft tissue thickening and left mid lung and left lower lobe infiltrates concerning for pneumonia.
[2024-06-01 09:30] VITALS: BP 112/39; PULSE 72; O2SAT 94
[2024-06-01] MEDS: ALBUTEROL-HFA 90MCG/PUFF INHALER 8GM 4 PUFF IH (09:32)
--- NOTE | 2024-06-01 09:32 | ED_ITS ---
Discharge Plan Disposition Patient Disposition: Home, Self-Care Prescriptions Prescriptions: New pokvgcfpdcytnvu-hcwiwdxcb-HI 2-30-10 mg/5 mL syrup 5 ml PO Q6H PRN (Reason: cold symptoms) 7 Days Qty: 118 0RF cefdinir 300 mg capsule 300 mg PO BID 10 Days Qty: 20 0RF No Action benzonatate 100 mg capsule 100 mg PO BID PRN (Reason: cough) Qty: 20 0RF azithromycin [Zithromax Z-Tre] 250 mg tablet See Rx Instructions PO .COMPLEX Qty: 6 0RF Rx Instructions: For 250 mg dose pack: take 500 mg today (day 1), then 250 mg for 4 days (days 2-5) PO prednisone 20 mg tablet 20 mg PO BID Qty: 10 0RF Referrals Follow up/Referrals: Provider,Referral, MD [Primary Care Provider] - See instructions Activity Restrictions/Add. Instructions Additional Instructions/Restrictions: There is a small new consolidation on the left side of your lung concerning for early pneumonia. Therefore cefdinir has been added to your antibiotic regimen. Please take your inhaler and your symptomatic medications that were prescribed. Return with any significant worsening of your symptoms. Clinical Impressions Clinical Impression: Bronchitis, CAP (community acquired pneumonia) Stand Alone Forms Stand Alone Forms: Work/School Release Instructions Patient Instructions: DI for Pneumonia -- Adult, DI for Acute Bronchitis Print Language Print Language: Croatian Discharge ED Provider: Dany Roberts General Adult HPI General Chief complaint: Upper Respiratory Infection Stated complaint: cough Time Seen by Provider: 06/01/24 09:22 Mode of Arrival: Ambulatory Source of Information: Patient Limitations: No Limitations Description of Symptoms (Recalled from ER Triage Doc. by RN): PT C/O ONGOING COUGH X 1 1/2 WEEKS. OCCASIONAL SPUTUM. REPORTS LAST FEVER ON SUNDAY NIGHT. HAD [facility] VISIT, WAS GIVEN STERIODS AND TESSLON PEARLS. History of Present Illness HPI narrative: Patient is a 53-year-old female previously healthy presents today with 1-1/2 weeks of a cough. States that it is dry and hacking no fevers or chills or any other significant shortness of breath or other symptoms associated with this other than some mild diarrhea. She went to the urgent treatment clinic was given benzonatate as well as prednisone and started on azithromycin without improvement in her symptoms. Related Data Previous Rx's ?Medication ?Instructions ?Recorded azithromycin 250 mg tablet See Rx Instructions PO .COMPLEX #6 05/29/24 (Zithromax Z-Tre) tabs benzonatate 100 mg capsule 100 mg PO BID PRN cough #20 caps 05/29/24 prednisone 20 mg tablet 20 mg PO BID #10 tabs 05/29/24 nlkzjxgzbtbbeft-wmouukndofsbnct-EJ 5 ml PO Q6H PRN cold symptoms 7 06/01/24 2 mg-30 mg-10 mg/5 mL oral syrup days #118 mL cefdinir 300 mg capsule 300 mg PO BID 10 days #20 caps 06/01/24 Allergies Allergy/AdvReac Type Severity Reaction Status Date / Time No Known Allergies Allergy Verified 05/29/24 15:42 [facility] Disclaimer: The information contained in this section may have been updated after the patient was seen, as this information can be updated by other users. Medical History Esophageal obstruction due to food impaction Dehydration Hypernatremia Esophagitis Schatzki's ring of distal esophagus Esophageal dysphagia Surgical History No significant past surgical history Family History Other No significant family history Social History Smoking Status: Never smoker alcohol intake: never counseling provided: none substance use type: denies use current occupational status: other Travel in the last 8 weeks: None household members: significant other housing: house current occupational exposures/hazards: No caffeine: No Have you lived/traveled outside [place] in past 30 days?: No Contact w/someone who lives/traveled outside US past 30 days?: No Exposure to someone with infectious disease in past 14 days?: No Do you have a fever (greater than 100.4 F or 38 C)?: No Have you tested positive for COVID-19: No Exposed to someone with COVID-19 in past 14 days?: No Do you have a sore throat?: No Do you have a cough?: Yes Do you have any weakness?: No Do you have any diarrhea?: No Are you experiencing any unusual bleeding?: No Do you have any muscle aches/pain?: No Do you have any abdominal pain?: No Are you experiencing loss of taste or smell?: No Other Medical History Have you received the Flu Vaccine for this season: No Have you received the Pneumonia Vaccine: No ROS Obtained: Yes All systems reviewed & no additional complaints except as documented Physical Exam General General appearance: alert and in no apparent distress Respiratory Respiratory exam: Present normal lung sounds bilaterally and other (Oxygen saturation 99% room air); Absent respiratory distress, wheezes, stridor, accessory muscle use or prolonged expiratory phase Cardiovascular Cardiovascular exam: Present regular rate Neurological Exam Neurological exam: Present alert and oriented X3 Medical Decision Making Medical Records Screening: Per USPSTF and CDC recommendations, given the prevalence of disease in our region, it is our hospital?s policy to screen for HIV and viral Hepatitis for all patients aged 18 and over and those with ongoing risk factors. Valdez Inquiry Pt receiving controlled substance: No Vital Signs: 06/01/24 09:11 06/01/24 09:30 06/01/24 10:00 Temperature 98.3 F Temperature Source Oral Pulse Rate 72 97 H Pulse Rate [Radial] 78 Respiratory Rate 18 Blood Pressure 112/39 L 134/96 H Blood Pressure [Right Arm] 123/81 Blood Pressure Mean [Right Arm] 95 Blood Pressure Source [Right Arm] Automatic Cuff Blood Pressure Position [Right Arm] Sitting 02 Sat by Pulse Oximetry 97 94 L 97 Oxygen Delivery Method Room Air Room Air Room Air Orders (Tests/Meds): ED MEDICATIONS Discontinued Medications Generic Name Dose Route Start Last Admin Trade Name Freq PRN Reason Stop Dose Admin Albuterol Sulfate 4 puff 06/01/24 09:26 06/01/24 09:32 Albuterol-Hfa 90mcg/Puff Inhaler 8gm IH 06/01/24 09:27 4 puff ONCE ONE Administration Miscellaneous 1 unit 06/01/24 09:26 06/01/24 09:34 Aerochamber/Optihaler MC 06/01/24 09:27 1 unit ONCE ONE Administration ORDERS Category Date Time Status Chest XR 2 view (NOT portable) [XR chest 2V] Stat Exams 06/01/24 09:26 Taken Medical Decision Narrative: Well-appearing 53-year-old with above history and physical presents today with 1-1/2 weeks of cough. This is within the normal duration of viral bronchitis which should most likely is especially given the fact that she was already initiated on azithromycin without significant improvement. Pertussis unlikely with that as well. She also has no history of asthma and did not improve with steroids. I will try an inhaler to see if that improves her here today as well as giving her a new prescription of Bromfed. Otherwise I believe she is doing everything she can from a supportive standpoint this is most likely viral and will need to run its course. She did complain of a bit of discomfort in her back with coughing and I will get a two-view chest x-ray to rule out any lobar pneumonia. Chest x-ray performed which I personally interpreted which shows bilateral hilar adenopathy which is consistent with old chest x-rays however there is a new developing consolidation just lateral to this in the left side in the middle region of the left lung consistent with an early developing consolidation/pneumonia. Will add cefdinir onto her existing regimen. Is possible this is still viral however will treat as if this is possibly bacterial as well. On reassessment clinically she is doing much better the inhaler helps her. I did add Bromfed onto her medications and advised that she continue take her symptomatic medications and to follow-up with her primary care doctor and return to the emergency room with any worsening symptoms. Critical Care Critical Care Time Critical Care Time: No
[2024-06-01] MEDS: AEROCHAMBER/OPTIHALER 1 UNIT MC (09:34)
[2024-06-01 10:00] VITALS: BP 134/96; PULSE 97; O2SAT 97
--- NOTE | 2024-06-01 10:41 | PC.NURSE ---
DR MAURER AT BEDSIDE TO UPDATE PT
[2024-06-01 10:43] VITALS: BP 135/74; PULSE 81; RESP 20; TEMP 36.8; O2SAT 96
== END 2024-06-01 10:47 | disposition home or self-care (01) ==
PROVIDERS: Emergency Provider Student in an Organized Health Care Education/Training Program
DX: J40 Bronchitis, not specified as acute or chronic (principal); J18.9 Pneumonia, unspecified organism; R05.9 Cough, unspecified; R50.9 Fever, unspecified; R19.7 Diarrhea, unspecified
CPT/HCPCS: 71046; 99283

== ENCOUNTER 2024-07-30 11:04 | Day surgery (SDC) | payer BC, SELFPAY ==
[2024-07-29 10:39] VITALS: BMI 34.9
[2024-07-30 11:42] VITALS: BP 108/66; PULSE 60; RESP 18; TEMP 36.3; O2SAT 96
[2024-07-30] MEDS: LACTATED RINGERS 1000ML 1,000 ML 50 ML IV (11:52)
--- NOTE | 2024-07-30 12:28 | EXP.ANES.CKL ---
[facility] Disclaimer: The information contained in this section may have been updated after the patient was seen, as this information can be updated by other users. Medical History Esophageal obstruction due to food impaction Dehydration Hypernatremia Esophagitis Schatzki's ring of distal esophagus Esophageal dysphagia Surgical History History of esophagogastroduodenoscopy History of cholecystectomy History of tubal ligation Family History Other No significant family history Social History (Updated 07/30/24 @ 11:50 by Olivia Blanca RN) Smoking Status: Never smoker alcohol intake: never counseling provided: none substance use type: denies use current occupational status: employed Travel in the last 8 weeks: None household members: significant other housing: house current occupational exposures/hazards: No caffeine: No Have you lived/traveled outside US in past 30 days?: No Contact w/someone who lives/traveled outside US past 30 days?: No Exposure to someone with infectious disease in past 14 days?: No Do you have a fever (greater than 100.4 F or 38 C)?: No Have you tested positive for COVID-19: No Exposed to someone with COVID-19 in past 14 days?: No Do you have a sore throat?: No Do you have a cough?: No Do you have any weakness?: No Are you experiencing any nausea/vomitting?: No Do you have any diarrhea?: No Are you experiencing any unusual bleeding?: No Do you have any muscle aches/pain?: No Do you have any abdominal pain?: No Are you experiencing loss of taste or smell?: No [facility] Anesthesia Checklist Patient Identification Patient Identification: Arm Band Structural Data Admitted From: Home Planned Operative Procedure/s: EGD/Colonoscopy Consent for Planned Operative Procedure(s) Verified: Yes Verified Documents: Surgical Consent and History and Physical NPO Status Verified Time NPO: 00:00 Additional verifications Anesthesia Reactions: No Airway Assessment Mallampati Score:: Class II C-Spine Mobility Assessed: Yes TMJ Mobility Assessed: Yes Dentition: Good Dentition Neurological Assessment Level of Consciousness: Awake, Alert and Appropriate Anesthesia Plan Anesthesia Risk discussed: Yes Anesthesia Plan: Verified ASA Class: II Anesthesia Type: MAC
--- NOTE | 2024-07-30 12:29 | EXP.HP ---
History of Present Illness *Admission Date: 07/30/24 *Reason for visit:: Dysphagia/dyspepsia/screening colonoscopy *History of present illness: Mrs. Sol is a 53-year-old female who is here for diagnostic upper endoscopy for dysphagia and screening colonoscopy. She has had several prior esophageal dilations and her last EGD was with me in December 2017. At that time she had a Schatzki's ring that was dilated to 20 mm. She also had mild esophageal dysmotility and 2 to 3 cm hiatal hernia. The patient does have dyspepsia with epigastric abdominal pain and discomfort. Her EGD previously showed linear reactive gastropathy. The patient states that when she does have food hung up, she will occasionally have to regurgitate and will get hiccups. She does note moderate belching but no bloating. She also reports alternating constipation with diarrhea. As a child she had severe constipation. Her bowel function improved after laparoscopic cholecystectomy 8 or 10 years ago. She may have a bowel movement every 2 or 3 days but does state that it is equal between constipation and diarrhea. She has had no weight loss or rectal bleeding. She has never had a colonoscopy and her had colorectal cancer. She reports no family history of colon cancer. The patient reports no globus sensation. She reports no family history of esophageal or gastric cancer. She is not on any PPI therapy and does get reflux intermittently. She does get epigastric abdominal pain which is her chief complaint. [facility] Disclaimer: The information contained in this section may have been updated after the patient was seen, as this information can be updated by other users. Medical History Esophageal obstruction due to food impaction Dehydration Hypernatremia Esophagitis Schatzki's ring of distal esophagus Esophageal dysphagia Surgical History History of esophagogastroduodenoscopy History of cholecystectomy History of tubal ligation Family History Other No significant family history Social History (Updated 07/30/24 @ 11:50 by Olivia Blanca RN) Smoking Status: Never smoker alcohol intake: never counseling provided: none substance use type: denies use current occupational status: employed Travel in the last 8 weeks: None household members: significant other housing: house current occupational exposures/hazards: No caffeine: No Have you lived/traveled outside [place] in past 30 days?: No Contact w/someone who lives/traveled outside [place] past 30 days?: No Exposure to someone with infectious disease in past 14 days?: No Do you have a fever (greater than 100.4 F or 38 C)?: No Have you tested positive for COVID-19: No Exposed to someone with COVID-19 in past 14 days?: No Do you have a sore throat?: No Do you have a cough?: No Do you have any weakness?: No Are you experiencing any nausea/vomitting?: No Do you have any diarrhea?: No Are you experiencing any unusual bleeding?: No Do you have any muscle aches/pain?: No Do you have any abdominal pain?: No Are you experiencing loss of taste or smell?: No Other Medical History Have you received the Flu Vaccine for this season: No Have you received the Pneumonia Vaccine: No Review of Systems Review of Systems Review of systems (narrative): Negative *Cardiovascular Comments: Negative *Gastrointestinal Comments: Negative *Genitourinary Comments: Negative *Musculoskeletal Comments: Negative *Neurologic Comments: Negative Meds Home Medications and Allergies Home Medications ?Medication ?Instructions ?Recorded ?Confirmed ?Type No Known Home Medications 07/29/24 07/30/24 History New Prescriptions to Start Prescriptions: Allergies Allergy/AdvReac Type Severity Reaction Status Date / Time No Known Allergies Allergy Verified 07/30/24 11:41 Exam Data for Last 24 hours Vital signs and Labs for Last 24 Hours: Temp Pulse Resp BP Pulse Ox O2 Del Method 97.4 F L 60 18 108/66 L 96 Room Air 07/30/24 11:42 07/30/24 11:42 07/30/24 11:42 07/30/24 11:42 07/30/24 11:42 07/30/24 11:42 I & O for Last 24 hours: Intake & Output 07/27/24 07/28/24 07/29/24 07/30/24 23:59 23:59 23:59 23:59 Weight 167 lb *Routine HEENT Exam Head: Present normocephalic Eye: Present EOMI and PERRL ENT: Present mucous membranes moist *Routine Neck Exam Neck: Present supple *Routine Respiratory Exam Respiratory: Present CTA bilaterally *Routine Cardiovascular Exam Cardiovascular: Present RRR *Routine Abdominal Exam Abdominal: Present soft and normoactive bowel sounds; Absent tenderness *Routine Rectal Exam Rectal:: deferred *Routine Genitalia Exam Genitalia:: deferred *Routine Extremities Exam Extremities: Absent cyanosis, clubbing or edema *Routine Skin Exam Skin: Present warm; Absent rash *Routine Neurological Exam Neurological: Present alert and oriented X3 Assessment and Plan *Assessment and plan (1) Epigastric pain: Status: Acute Category: Medical Code(s): R10.13 - Epigastric pain (2) Dyspepsia: Status: Acute Category: Medical Code(s): R10.13 - Epigastric pain (3) Dysphagia: Status: Acute Category: Medical Code(s): R13.10 - Dysphagia, unspecified (4) Esophageal obstruction due to food impaction: Status: Acute Category: Medical Code(s): T18.128A - Food in esophagus causing other injury, initial encounter; [id number] - Food entering into or through a natural orifice, initial encounter (5) Screening for colon cancer: Status: Acute Category: Medical Code(s): Z12.11 - Encounter for screening for malignant neoplasm of colon Plan A/P: 1. Dyspepsia with epigastric pain and dysphagia for upper endoscopy and screening for colon cancer for colonoscopy is the preprocedural diagnosis. The patient will be anesthetized/sedated using MAC sedation. The patient has been seen and examined. Cardiac and lung assessment prior to the examination is stable. Proceed with planned EGD and colonoscopy
--- NOTE | 2024-07-30 12:32 | HMH.PROCNOTE ---
[facility] Procedure Note Date: 07/30/24 Procedure Note:: Upper Endoscopy Procedure Report: Esophagogastroduodenoscopy with cold biopsies and TTS balloon dilation Endoscopost: Piter Velasquez II, MD Referring Physician: None Date of Procedure: July 30, 2024 Equipment: Olympus GIF 190 standard upper endoscope Sedation: MAC sedation Indications: Mrs. Sol is a 53-year-old female who is here for diagnostic upper endoscopy secondary to dysphagia. The patient does have a ridge in the mid epigastrium when she bends over or strains (diastases of the rectus abdominal muscle). She has had several prior esophageal dilations and her last EGD was with [place] in December 2017. At that time she had a Schatzki's ring that was dilated to 20 mm. She also had mild esophageal dysmotility and 2 to 3 cm hiatal hernia. The patient does have dyspepsia with epigastric abdominal pain and discomfort. Her EGD previously showed linear reactive gastropathy. The patient states that when she does have food hung up, she will occasionally have to regurgitate and will get hiccups. She does note moderate belching but no bloating. She also reports alternating constipation with diarrhea. As a child she had severe constipation. Her bowel function improved after laparoscopic cholecystectomy 8 or 10 years ago. She may have a bowel movement every 2 or 3 days but does state that it is equal between constipation and diarrhea. She has had no weight loss or rectal bleeding. She has never had a colonoscopy and her had colorectal cancer. She reports no family history of colon cancer. The patient reports no globus sensation. She reports no family history of esophageal or gastric cancer. She is not on any PPI therapy and does get reflux intermittently. She does get epigastric abdominal pain which is her chief complaint.] Procedure: Prior to the procedure, a history and physical exam was performed, and patient's medications and allergies were reviewed. The risks, benefits and alternatives of the sedation and procedure were discussed with the patient. All questions were answered and informed consent was obtained. The patient was brought to the procedure room. Patient identification and proposed procedure were verified by the physician and the nurse. The patient was placed in a left lateral decubitus position and the scope was passed under direct vision. Throughout the procedure, the patient's blood pressure, pulse, and oxygen saturations were monitored continuously. The upper GI endoscopy was accomplished without difficulty. The patient tolerated the procedure well. Findings: The scope was passed directly into the upper esophagus and advanced to the third portion of the duodenum. The post bulbar duodenum and duodenal bulb were normal with normal mucosa and conniventes. The scope was withdrawn through a normal duodenal bulb and pylorus into the stomach. There was linear erosive gastropathy of the antrum and body with antral erosions (erosive gastropathy). Biopsies were taken from the antrum. There were a couple of fundic gland polyps in the body and fundus. Upon retroflexion there was a small 1 to 2 cm hiatal hernia. There was some mild atrophy of the fundus. The scope was then withdrawn into the esophagus. There was a distal Schatzki's ring that was originally 14 to 15 mm in diameter. This was dilated to 60 [place]/20 mm with a TTS hydrostatic balloon. There was also a fibrous web in the very proximal esophagus adjacent to the cricopharyngeus dilated to 18 mm. There is no evidence of reflux esophagitis or Benavides's. There was no furrowing or corrugation. The remainder of the esophageal mucosa was normal. Impression: 1. Schatzki's ring dilated to 20 mm 2. 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 Very small sliding hiatal hernia 4. Linear erosive gastropathy of antrum with mild atrophy of the fundus Plan: I will discuss the findings with the patient and family and proceed with screening colonoscopy. I will follow-up the biopsies.
[2024-07-30 12:35] VITALS: O2SAT 99
--- NOTE | 2024-07-30 13:11 | HMH.PROCNOTE ---
[facility] Procedure Note Date: 07/30/24 Time: 13:11 Procedure Note:: Colonoscopy Procedure Report: Colonoscopy with cold snare polypectomy Endoscopist: Piter Velasquez II, MD Referring physician: None Date of Procedure: July 30, 2024 Equipment: Olympus 190 variable stiffness pediatric colonoscope Sedation: MAC sedation Indication: Mrs. Sol is a 53-year-old female who is here for initial screening colonoscopy. She has had longstanding mixed IBS with alternating constipation with diarrhea. As a child she had severe constipation. Her bowel function improved after laparoscopic cholecystectomy 8 or 10 years ago. She may have a bowel movement every 2 or 3 days but does state that it is equal between constipation and diarrhea. She has had no weight loss or rectal bleeding. She has never had a colonoscopy and her had colorectal cancer. She reports no rectal bleeding, weight loss or change in bowel habits. She reports no family history of colon cancer. Procedure: Prior to the procedure, a history and physical exam was performed, and patient's medications and allergies were reviewed. The risks, benefits and alternatives of the sedation and procedure were discussed with the patient. All questions were answered and informed consent was obtained. The patient was brought to the procedure room. Patient identification and proposed procedure were verified by the physician and the nurse. The patient was placed in a left lateral decubitus position and the scope was passed under direct vision. Throughout the procedure, the patient's blood pressure, pulse, and oxygen saturations were monitored continuously. The colonoscopy was accomplished without difficulty. The patient tolerated the procedure well. Findings: On digital rectal examination there was normal rectal tone. There were no external hemorrhoids. The colonoscope was introduced through the anal canal to the rectum and advanced to the cecum. The ileocecal valve and appendiceal orifice were identified. The scope was advanced a short distance into the ileum which appeared grossly normal. The scope was then withdrawn into the colon. There was a single 3 mm polyp in the ascending colon removed via cold snare polypectomy. The remaining cecum, ascending and transverse colon and mucosa were grossly normal. There were very mildly shallow scattered diverticuli within the sigmoid colon (LEFT colon). The rectum itself was normal. Upon retroflexion within the rectum there were grade 1-2 internal hemorrhoids. The preparation was excellent throughout with Geraldine Preparation Score of 9. The cecal time was 12 minutes. Impression: 1. Diminutive 3 mm ascending colon polyp 2. Mild sigmoid diverticulosis 3. Grade 1-2 internal hemorrhoids Plan: I will follow-up the polyp histology and recommend repeat surveillance colonoscopy again in 7 to 10 years based upon the pathology. I would encourage a fiber bowel regimen (combined MiraLAX plus Citrucel) on a long-term daily maintenance basis.
[2024-07-30 13:14] VITALS: BP 85/37; PULSE 83; RESP 18; TEMP 36.8; O2SAT 97
[2024-07-30 13:24] VITALS: BP 98/54; PULSE 82; RESP 16; O2SAT 99
[2024-07-30 13:34] VITALS: BP 100/56; PULSE 89; RESP 16; O2SAT 99
[2024-07-30 13:44] VITALS: BP 109/71; PULSE 87; RESP 18; O2SAT 99
== END 2024-07-30 14:00 | disposition home or self-care (01) ==
PROVIDERS: Visit Provider Internal Medicine Gastroenterology
PROC: 0DJ08ZZ Inspection of Upper Intestinal Tract, Via Natural or Artificial Opening Endoscopic (ICD-10-PCS; CPT 45378; principal; 2024-07-30 13:00)
DX: K31.7 Polyp of stomach and duodenum (principal); K44.9 Diaphragmatic hernia without obstruction or gangrene; K31.9 Disease of stomach and duodenum, unspecified; K29.40 Chronic atrophic gastritis without bleeding; Q39.4 Esophageal web; K22.2 Esophageal obstruction; K63.5 Polyp of colon; K57.30 Diverticulosis of large intestine without perforation or abscess without bleeding; K64.8 Other hemorrhoids; R10.13 Epigastric pain; R13.10 Dysphagia, unspecified; T18.128A Food in esophagus causing other injury, initial encounter; W44.F3XA Food entering into or through a natural orifice, initial encounter; K58.2 Mixed irritable bowel syndrome; Z12.11 Encounter for screening for malignant neoplasm of colon
CPT/HCPCS: 43239; 43249; 45385; C1726; J1596; J7120